=== PATIENT | male | born 1995 | race Native Hawaiian/Other Pacific Islander ===

== ENCOUNTER 2017-01-13 06:23 | Day surgery (SDC) | payer OTHER ==
[2017-01-06 07:22] VITALS: BMI 19.1
[2017-01-13] MEDS ORDERED: Morphine 4 MG/ML VIAL ONE (07:11)
[2017-01-13] MEDS ORDERED: Propofol 10 mg/ml Inj (20 ML) ONE (07:11)
[2017-01-13] MEDS ORDERED: Midazolam 2 MG/2 ML VIAL ONE (07:11)
[2017-01-13] MEDS ORDERED: Rocuronium 10 mg/ml (5 ml) ONE ×2 (07:15→07:17)
[2017-01-13] MEDS ORDERED: Succinylcholine Chloride 20 mg/ml Syr (5 ml) IV ONE (07:15)
[2017-01-13] MEDS ORDERED: Phenylephrine 0.5% Nasal Spray (15 ml) ONE (07:16)
[2017-01-13] MEDS ORDERED: Clindamycin 600mg/50ml NS 600 MG/50 ML BAG IVPB ONE (07:22)
[2017-01-13] MEDS ORDERED: Absorbable Gelatin Sponge Size 100 ONE (07:22)
[2017-01-13] MEDS ORDERED: Lactated Ringer's 1,000 ML IV ONE (07:30)
[2017-01-13 09:19] VITALS: O2SAT 100
[2017-01-13] MEDS ORDERED: HYDROmorphone 0.5 mg/0.5 ml ISec IVP PRN (09:25)
[2017-01-13] MEDS ORDERED: Lactated Ringer's 500 ML IV ONE (10:30)
[2017-01-13 10:51] VITALS: PULSE 78; RESP 15
[2017-01-13 12:01] VITALS: BP 100/55; TEMP 97.8
--- NOTE | 2017-01-14 08:36 | OP ---
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 PROCEDURE: Incision and drainage of abscess, extraction of teeth #1, 16, 17, 32 under general anesthesia. TYPE OF ANESTHESIA: General via nasal trach intubation. PREOPERATIVE MEDICATIONS: Cleocin 600 mg and Decadron 10 mg. PREOPERATIVE FINDINGS: This is a 21-year-old male patient with history of hypothyroidism, uncontrolled, presented to office for evaluation of pain and swelling secondary to impacted upper and lower wisdom teeth. The risks and benefits were reviewed in conjunction with the patient's medical docket due to Graves disease and possible thyroid storm, deemed medically necessary to perform this in the hospital setting. Risks and benefits reviewed. The patient is scheduled for the OR. DESCRIPTION OF PROCEDURE: The patient was brought to the OR via stretcher, placed on the operating table in supine position very carefully. When the anesthesiologist took over care of the patient with IV in place, monitors in place, the patient then began to be put to sleep. When the patient was fully asleep and intubated nasally, mouth was irrigated and suctioned dry and throat pack was then placed. The patient was then draped in usual sterile manner using lidocaine HCL 2% with 100,000 epinephrine. Upper right PSA and MSA greater palatine nerve block was given. Upper left PSA and MSA greater palatine nerve block was given, lower left and lower right inferior alveolar nerve blocks, lingual nerve blocks, and long buccal nerve blocks were given. At this point in time, 6 carpules were infiltrated in all 4 surgical sites. Attention was given to tooth #1 using a #15 blade incision made in the tuberosity region of mesial aspect of tooth #2 reflecting flaps superiorly exposing lateral cortex of the maxilla. Bone was removed and the tooth was then elevated and extracted in its entirety. Bone is filed, irrigated and suction dried. Flap was repositioned and closed primarily with 3-0 gut sutures. Attention was drawn to tooth #16 following similar technique. Incision made in the tuberosity region in mesial aspect of tooth #15, reflecting a flap superiorly exposing the lateral cortex of the maxilla. Bone was removed, the tooth was then elevated and extracted in its entirety. Bone was filed, irrigated, and suction dried. The flap was repositioned, closed primarily with 3-0 gut sutures. At this point, there was no active bleeding noted, and attention then drawn to tooth #17 which was deeply impacted horizontal wisdom tooth. Using a #15 blade, incision was made from the external oblique region of mesial aspect of tooth #18, reflecting flap inferiorly with distal releasing hockey-stick incision. The bone was then removed after exposing lateral cortex of the mandible. Once at the distobuccal occlusal aspect, the tooth was then visualized, it was everted and up against the distal aspect of tooth #18. Tooth was then sectioned in multiple pieces and removed entirely. There was no nerve root involvement noted. Lingual plate was noted to be intact as well as the distal #18, and no mobility. The bone was filed, irrigated, and suctioned dried. The flap was then repositioned, closed primarily with 3-0 gut sutures. Packing was then placed for hemostasis. No active bleeding was noted. Attention then drawn to lower right side where the patient noted to have the swelling in the vestibular region. Using a #15 blade, incision was made from external oblique region of mesial aspect of tooth #31, reflecting flap inferiorly. The patient noted to have root canal and a crown at tooth #31. Using caution, the bone was removed at the distobuccal occlusal aspect and tooth was then sectioned in multiple pieces as up against the distal aspect of tooth #31. There is no reabsorption of the root visualized with a mirror. At this point, the lingual plate was noted to be intact after the tooth was removed entirely. No visualization of the inferior alveolar nerve. The bone was then filed, irrigated and suctioned dried. The flap was then repositioned, closed primarily with 3-0 gut sutures. Pressures were then maintained bilaterally. No active bleeding was noted. At this point in time, the mouth was then irrigated and suctioned dry. The throat pack was then removed. The patient was then awakened, extubated, breathing well on his own, transferred over to the PACU in stable condition. Total fluid replacement was approximately 900 mL of fluid. Total fluid loss was less than 20 mL of fluid. Say Paul DMD
== END 2017-01-13 12:12 | disposition home or self-care (01) ==
LOC: C.SDS 06:23
PROVIDERS: ATTEND Dentist Oral and Maxillofacial Surgery
DX: K01.1 Impacted teeth (principal); M27.2 Inflammatory conditions of jaws
CPT/HCPCS: 41009; 88300; D7240; J1100; J1170; J2001; J2250; J2270; J2405; J2704; J3010; J7120

== ENCOUNTER 2018-07-20 10:43 | Outpatient (CLI) | payer OTHER | END 2018-07-20 10:44 | disposition home or self-care (01) | LOC: C.LAB 10:43 | DX: E03.9 Hypothyroidism, unspecified (principal) ==